=== PATIENT | male | born 1950 | race African-American/Black ===

== ENCOUNTER → 2017-12-31 | Outpatient (CLI) | payer MEDICARE, OTHER ==
[~2017-12-31] MED LIST: CARB1DRO12 OP; CLAR500T PO; FLUO15CR TP; FLUO20CA8 PO; FOLI1TAB16 PO; MOME45CR2 TP; OMEP40CA5 PO; PRAM15FO2 TP; TAMS0.4C2 PO; TRIA80OI TP; VALA1000 PO
--- NOTE | 2017-12-31 12:18 | EKG ---
[facility] [address] [place] [address] Test Date: 2017-12-31 Test Time: 12:26:55 Pat Name: CYN BRICEÑO Department: Room: Gender: M [employer] Software Engineer: : 1950 Requested By: KENY TAPIA Order Number: [id number] Reading MD: Fazal Swanson MD Measurements Intervals [place] Rate: 73 P: 43 WI: 158 QRS: 22 QRSD: 76 T: 26 QT: 358 QTc: 398 Interpretive Statements SINUS RHYTHM Electronically Signed On 12-31-2017 14:34:00 AERIAL INSTALLER by Fazal Swanson MD
[2017-12-31 12:33] LABS: ALBUMIN 3.4 g/dL (3.4-5.0); CREATININE 1.1 mg/dL (0.7-1.3); POTASSIUM 4.2 mmol/L (3.5-5.1)
[2017-12-31 12:36] LABS: PROTHROMBIN TIME PATIENT 12.6 SEC (11.7-14.0)
[2017-12-31 12:44] LABS: BASO % 1 % (0-3); EOS # 0.1 x10^3/uL (0.0-0.7); EOS % 3 % (0-3); HEMATOCRIT 36.5 % (39.0-53.0); HEMOGLOBIN 12.2 g/dL (13.0-17.5); LYMPH # 1.6 x10^3/uL (1.0-4.8); LYMPH % 38 % (24-48); MEAN CORPUSCULAR HEMOGLOBIN 31 pg (25-35); MEAN CORPUSCULAR HGB CONC 33 g/dL (31-37); MEAN CORPUSCULAR VOLUME 92 fL (79-100); MONO # 0.4 x10^3/uL (0.0-1.1); MONO % 10 % (0-9); NEUT % 48 % (31-73); PLATELET COUNT 211 x10^3/uL (140-400); RED BLOOD COUNT 3.97 x10^6/uL (4.30-5.70); RED CELL DISTRIBUTION WIDTH 14.2 % (11.5-14.5); WHITE BLOOD COUNT 4.1 x10^3/uL (4.0-11.0)
[2017-12-31 13:39] LABS: BILIRUBIN,URINE NEGATIVE (NEG); CLARITY,URINE CLEAR; COLOR,URINE YELLOW; NITRITE,URINE NEGATIVE (NEG); PH,URINE 6.5; PROTEIN,URINE NEGATIVE (NEG-TRACE); UROBILINOGEN,URINE 0.2 mg/dL (0.2 mg/dL)
[2017-12-31 14:16] LABS: BACTERIA,URINE 0 /HPF (0-FEW); RBC,URINE 0 /HPF (0-2); SQUAMOUS EPITHELIAL CELL,UR OCC /LPF; WBC,URINE 0 /HPF (0-4)
--- NOTE | 2017-12-31 15:17 | RAD ---
AP and Lateral Views of the Chest 12/31/2017 11:07 AM Indication: PRE OP FOR TOTAL HIP REPLACEMENT ON 01/14/18 Comparison: None available Findings: There is no focal consolidation or infiltrate identified. The cardiomediastinal silhouette is within normal limits. There is no evidence of pneumothorax or pleural effusion. Patient is right shoulder is noted to be elevated. This may be positional. Impression: No evidence of acute cardiopulmonary process. Electronically signed by: Micheal Coto MD (12/31/2017 3:14 PM) [facility]
== END | disposition home or self-care (01) ==
LOC: SURGPAT 10:56
PROVIDERS: ATTEND Orthopaedic Surgery Sports Medicine
DX: Z01.818 Encounter for other preprocedural examination (principal); M16.11 Unilateral primary osteoarthritis, right hip
CPT/HCPCS: 36415; 71046; 80048; 81001; 82040; 85025; 85610; 85651; 85730; 87641; 93005

== ENCOUNTER → 2018-03-19 | Outpatient (CLI) | payer MEDICARE, OTHER ==
[2018-03-19 16:51] LABS: BASO # 0.1 x10^3/uL (0.0-0.2); BASO % 1 % (0-3); EOS # 0.1 x10^3/uL (0.0-0.7); EOS % 3 % (0-3); HEMATOCRIT 37.8 % (39.0-53.0); HEMOGLOBIN 12.4 g/dL (13.0-17.5); LYMPH # 1.9 x10^3/uL (1.0-4.8); LYMPH % 43 % (24-48); MEAN CORPUSCULAR HEMOGLOBIN 31 pg (25-35); MEAN CORPUSCULAR HGB CONC 33 g/dL (31-37); MEAN CORPUSCULAR VOLUME 93 fL (79-100); MONO # 0.6 x10^3/uL (0.0-1.1); MONO % 13 % (0-9); NEUT # 1.7 x10^3uL (1.8-7.7); NEUT % 40 % (31-73); PLATELET COUNT 200 x10^3/uL (140-400); RED BLOOD COUNT 4.07 x10^6/uL (4.30-5.70); RED CELL DISTRIBUTION WIDTH 14.1 % (11.5-14.5); WHITE BLOOD COUNT 4.4 x10^3/uL (4.0-11.0)
[2018-03-19 16:54] LABS: BILIRUBIN,URINE NEGATIVE (NEG); CLARITY,URINE CLEAR; COLOR,URINE YELLOW; NITRITE,URINE NEGATIVE (NEG); PROTEIN,URINE NEGATIVE (NEG-TRACE)
[2018-03-19 16:59] LABS: ALBUMIN 3.9 g/dL (3.4-5.0); CALCIUM 8.9 mg/dL (8.5-10.1); CREATININE 1.1 mg/dL (0.7-1.3); POTASSIUM 4.2 mmol/L (3.5-5.1)
[2018-03-19 17:11] LABS: BACTERIA,URINE 0 /HPF (0-FEW); HYALINE CASTS, URINE OCCASIONAL /HPF; RBC,URINE OCC /HPF (0-2); SQUAMOUS EPITHELIAL CELL,UR FEW /LPF; WBC,URINE OCC /HPF (0-4)
== END | disposition home or self-care (01) ==
LOC: SURGPAT 14:35
PROVIDERS: ATTEND Orthopaedic Surgery
DX: Z01.818 Encounter for other preprocedural examination (principal); M16.11 Unilateral primary osteoarthritis, right hip
CPT/HCPCS: 36415; 80048; 81001; 82040; 85025; 87641

== ENCOUNTER → 2018-03-25 | Day surgery (SDC) | payer MEDICARE, OTHER ==
[2018-03-19 15:33] VITALS: BP 123/72
[~2018-03-25] VITALS: Ht 170.2 cm; Wt 83.5 kg
[~2018-03-25] MED LIST changes: +FERR325T14 PO; +HYDROcodone/APAP 7.5/325MG 1 TAB TABLET PO PRN; +MELOXICAM 7.5 MG TABLET PO PRN; +OXYC1TAB15 PO; +SENN-161 PO; +TRANEXAMIC ACID 1,000 MG in IV NS 50ML -- 1ST BAG INJ ONE; +TRANEXAMIC ACID 1,000 MG in IV NS 50ML -- 2ND BAG INJ ONE; +TV=100ml MORPHINE 5 MG, KETOROLAC 30 MG, ROPIVacaine 0.5% PF 60 ML, EPINEPH... INT ART ONE; +WARF-31 PO
== END | disposition home or self-care (01) ==
LOC: OPSVCIP 05:49 → UNDOADMIN 05:49 → OPSVCOP 06:00 → EDSTATUS 08:30
PROVIDERS: ATTEND Orthopaedic Surgery Sports Medicine
DX: M19.90 Unspecified osteoarthritis, unspecified site (principal); Z53.8 Procedure and treatment not carried out for other reasons

== ENCOUNTER 2018-04-15 06:06 | Inpatient (IN) | payer MEDICARE, OTHER ==
[~2018-04-15] VITALS: Ht 171.4 cm; Wt 83.5 kg
[2018-04-15] VITALS (8 sets, daily range): BP systolic 92–126; BP diastolic 64–77
[~2018-04-15 06:06] MED LIST changes: -FERR325T14 PO; -HYDROcodone/APAP 7.5/325MG 1 TAB TABLET PO PRN; -MELOXICAM 7.5 MG TABLET PO PRN; +MORPHINE SULFATE 5 MG, KETOROLAC 30MG VIAL 30 MG, ROPIVacaine 0.5% PF 60 ML, EPINEPHrin... INT ART ONE; -OXYC1TAB15 PO; -SENN-161 PO; -TRANEXAMIC ACID 1,000 MG in IV NS 50ML -- 1ST BAG INJ ONE; -TRANEXAMIC ACID 1,000 MG in IV NS 50ML -- 2ND BAG INJ ONE; -TV=100ml MORPHINE 5 MG, KETOROLAC 30 MG, ROPIVacaine 0.5% PF 60 ML, EPINEPH... INT ART ONE; -WARF-31 PO
[2018-04-15] MEDS ORDERED: ONDANSETRON PF 4 MG/2 ML VIAL. ONE (06:55)
[2018-04-15] MEDS ORDERED: DEXAMETHASONE SOD PHOS 20 MG/5 ML VIAL. ONE (06:55)
[2018-04-15] MEDS ORDERED: PROPOFOL 20 ML IV ONE ×2 (06:55→09:40)
[2018-04-15] MEDS ORDERED: FAMOTIDINE 20 MG/2 ML VIAL ONE (06:55)
[2018-04-15] MEDS ORDERED: LIDOCAINE 2% PF 5 ML VIAL. ONE (06:55)
[2018-04-15] MEDS ORDERED: HYDROmorphone 2 MG/ML VIAL IV PRN (07:00)
[2018-04-15] MEDS ORDERED: LIDOCAINE 1% PF 2 ML VIAL. ID PRN (07:00)
[2018-04-15] MEDS ORDERED: IV RINGERS,LACTATED 1000ML 1,000 ML IV SCH (07:00)
[2018-04-15] MEDS ORDERED: ONDANSETRON PF 4 MG/2 ML VIAL. IV PRN (07:00)
[2018-04-15] MEDS ORDERED: MORPHINE SULFATE 2 MG/ML VIAL. IV PRN (07:00)
[2018-04-15] MEDS ORDERED: PROCHLORPERAZINE 10 MG/2 ML VIAL. IV PRN (07:00)
[2018-04-15] MEDS ORDERED: fentaNYL PF VIAL 100 MCG/2 ML VIAL IV PRN ×3 (07:00→07:45)
[2018-04-15] MEDS ORDERED: ROCURONIUM 50 MG/5 ML VIAL. ONE (07:02)
[2018-04-15] MEDS ORDERED: fentaNYL PF VIAL 100 MCG/2 ML VIAL ONE ×2 (07:02→08:24)
[2018-04-15] MEDS ORDERED: MIDAZOLAM HCL/PF 2 MG/2 ML VIAL. ONE (07:03)
[2018-04-15] MEDS ORDERED: MELOXICAM 7.5 MG TABLET PO ONE (07:15)
[2018-04-15] MEDS ORDERED: HYDROcodone/APAP 7.5/325MG 1 TAB TABLET PO ONE (07:30)
[2018-04-15] MEDS ORDERED: IV NORMAL SALINE 1000ML BAG 1,000 ML IV SCH (07:33)
[2018-04-15] MEDS ORDERED: ZOLPIDEM 5 MG TABLET. PO PRN (07:45)
[2018-04-15] MEDS ORDERED: PROCHLORPERAZINE 5 MG TABLET. PO PRN (07:45)
[2018-04-15] MEDS ORDERED: diphenhydrAMINE 50 MG/ML VIAL IV PRN (07:45)
[2018-04-15] MEDS ORDERED: METOCLOPRAMIDE HCL 10 MG/2 ML VIAL. IV PRN (07:45)
[2018-04-15] MEDS ORDERED: DEXTROSE 50% 25 GM / 50ML DISP.SYRIN. IV PRN (07:45)
[2018-04-15] MEDS ORDERED: CALCIUM CARBONATE 500 MG TAB.CHEW PO PRN (07:45)
[2018-04-15] MEDS ORDERED: FLUOCINONIDE TP PRN (07:45)
[2018-04-15] MEDS ORDERED: 0.9 % SODIUM CHLORIDE 10 ML DISP.SYRIN. IV PRN (07:45)
[2018-04-15] MEDS ORDERED: MORPHINE SULFATE 4 MG/ML VIAL. IV PRN (07:45)
[2018-04-15 07:47] LABS: PROTHROMBIN TIME PATIENT 12.3 SEC (11.7-14.0)
[2018-04-15] MEDS: FERROUS SULFATE 325 MG TABLET. PO SCH ×2 (08:00→15:55)
[2018-04-15] MEDS ORDERED: TRANEXAMIC ACID 1,000 MG in IV NORMAL SALINE 50ML 50 ML INJ ONE ×2 (08:00→10:00)
[2018-04-15] MEDS ORDERED: NEOSTIGMINE 10 MG/10 ML VIAL. ONE (08:16)
[2018-04-15] MEDS ORDERED: GLYCOPYRROLATE 1 MG/5 ML VIAL. ONE (08:16)
[2018-04-15] MEDS ORDERED: MOMETASONE FUROATE TP SCH (09:00)
[2018-04-15] MEDS ORDERED: PRAMOXINE 1% RECTAL FOAM 15GM CAN. TP SCH (09:00)
[2018-04-15] MEDS: FOLIC ACID 1 MG TABLET. PO SCH (09:00)
[2018-04-15] MEDS: MULTIVITAMIN with MINERAL TABLET. PO SCH (09:00)
[2018-04-15] MEDS ORDERED: TRIAMCINOLONE ACETONIDE 0.1% TOPICAL CREAM 15GM TUBE. TP SCH (09:00)
[2018-04-15] MEDS: SENNOSIDES/DOCUSATE 8.6/50MG TABLET. PO SCH (09:00)
[2018-04-15] MEDS ORDERED: POLYVINYL ALCOHOL 1.4% OPHTH SOLUTION 15ML BOTTLE. OU SCH (09:00)
[2018-04-15] MEDS ORDERED: SEVOFLURANE > 120 MINUTES. IH ONE (09:19)
--- NOTE | 2018-04-15 09:47 | PDOC4 ---
Operative Note Operative Note Date of procedure: 04/15/2018 Surgeon: David Tapia Asst.: Chava Dean, advanced practice registered nurse who was necessary to assist with manipulating the leg and holding retractors as well as wound closure for this procedure Preoperative diagnosis: Advanced right hip primary degenerative joint disease Postoperative diagnosis: Same Procedure performed: right total hip arthroplasty Anesthesia: Gen. Findings: Advanced primary degenerative joint disease of right hip. Blood loss: 200 mL Complications: None Components inserted Joaquin and nephew 54 mm R3 shell with a 20 posteriorly directed liner, size 5 standard offset anthology stem with a 36+0 Oxinium head Reason for procedure: Patient is a very pleasant individual with severe progressive pain interfering with her activities of daily living and attributable to the above preoperative diagnosis. Clinical and radiographic examination were consistent with the above preoperative diagnosis and after discussion of the risks, benefits, and alternatives, taking into account his failure of conservative therapies, the patient elected to proceed with surgery. Description of procedure: Patient was greeted in the preoperative area by myself for the correct extremity was verified and marked. He was taken back to the operative suite and antibiotics were started as they were brought back. Once in the operative room, patient was transferred gently supine to the operating table and secured to the bed with all pressure points padded. Axillary roll was used. The down leg was padded at the fibular head and heel. Patient was secured the bed with our hip positioning devices. I then appreciated leg lengths in this position. After this, the operative extremity was prepped and draped in her usual sterile fashion including an Ioban Humbird. We then proceeded to conducted our standard preoperative timeout. I then palpated and marked surface anatomy and jose a line from my standard posterolateral skin incision. Skin was incised with a scalpel and subcutaneous tissue was dissected down the level of fascia with electrocautery. Bleeders were cauterized as a were encountered. Alejo elevator was used to sweep aside adherent subcutaneous tissue for later identification and repair of the fascia. Fascia was then incised in line with the skin incision and the gluteus caroline was split bluntly in line with its fibers. There was abundant fibrotic tissue present and I excised some of this for exposure. After this, a lap was used to push bursal tissue posteriorly to identify the piriformis and quadratus, these were taken down, the piriformis was tagged for later repair. Our self-retaining retractor was in place. At this point, identified the hip capsule incised in a T -type incision, taking ends for later repair. The hip was dislocated, overall it was quite tight and therefore I elected to release 1 cm of the gluteus caroline tendinous insertion. I then palpated and marked with electrocautery areas at the greater and lesser trochanters and center of the femoral head and I made measurements for length and offset. I then jose a line on the neck about 1 cm proximal lesser trochanter and made my neck cut through this. The bony remnant was delivered from the operative field. We placed her acetabular retractors and inspected the acetabulum. I excised the soft tissues from the floor the acetabulum as well as the labrum. Osteophytes were taken down posteriorly. After this, we began reaming and reamed down until we encountered a punctate bleeding bony bed. The operative field and then thoroughly irrigated out. The cup was then impacted referencing la posta anatomy and the crossbar attachment. I had identified the transverse acetabular ligament. After this, I palpated for the posterior column and greater sciatic notch and referenced this to place a screw into the posterior column. The operative field was irrigated again and my polyethylene liner was then impacted in position and confirmed that it was fully seated on circumferential visualization. We then removed our acetabular retractors and used our proximal femoral elevator and repositioned the leg. I used the hardeep cutting osteotome followed by canal finding reamer followed by lateralizing reamer. We then began broaching and broached to the above size and trialed different head and necks, using our measurements as a guide as well. The above sizes gave the best range of motion and stability. After this, the trial components were removed and the canal was thoroughly irrigated. I then impacted my femoral STEM and position. We then re-trialed the head sizes and selected the above size. The hip was redislocated and the Casarez taper region was washed and dried. The femoral head was then gently impacted in position and the acetabulum was inspected and irrigated to make sure was free of debris. After this, the hip was reduced. Excellent range of motion and stability were achieved. I was happy with the leg lengths. We then closed capsule with simple interrupted #2 Ethibond. Piriformis was reapproximated through drill holes. I then injected my periarticular mixture into the veronica- incisional soft tissues below. Fascia was closed was running #2 Quill suture. Inverted interrupted 2-0 Vicryl in a multilayered fashion was used for subcutaneous tissue and running 4-0 Monocryl for skin. Prior to wound closure, all counts correct 2. No complications. At the conclusion, the hip region was cleansed and dried and our incisional wound vacuum was applied. Patient tolerated surgery well. At the conclusion, they were laid supine and transferred gently supine to the hospital bed and taken to PACU in a stable and extubated condition. Postoperative plan is to admit the patient to the joint center for DVT and antibiotic prophylaxis as well as to begin the rehabilitation and receive likely IV pain medicine. DAVID TAPIA II, MD Apr 15, 2018 09:47
--- NOTE | 2018-04-15 10:40 | RAD ---
EXAM: Pelvis, single view. HISTORY: Arthroplasty. COMPARISON: None. FINDINGS: A frontal view of the pelvis is obtained. There is a right hip arthroplasty in expected position. There is surrounding soft tissue gas due to recent surgery. There is mild left hip joint space narrowing with subchondral sclerosis and minimal marginal spurring. There is degenerative change at the lumbosacral junction. IMPRESSION: Right hip arthroplasty in expected position. Electronically signed by: Loren Franco MD (04/15/2018 10:37 AM) [facility]
--- NOTE | 2018-04-15 11:00 | NUR ---
Arrived to unit by bed from PACU. Awakens easily with no c/o at present time. Right hip dressing is intact with HINA dressing. Pedal pulses + bilaterally, warm to touch and able to wiggle toes easily. JESUSITA, SCD on left leg and LATOYA on right foot. IVF's intact and infusing. O2 at 2l per n/c. Oriented to room and controls. Side rails up x's 2 with call light in reach. Family at bedside. VS stable. Cont. monitor.
[2018-04-15] MEDS: ONDANSETRON ODT 4 MG TAB.RAPDIS. PO SCH ×2 (12:00→15:57)
[2018-04-15] MEDS: ONDANSETRON PF 4 MG/2 ML VIAL. IV SCH ×2 (12:00→15:57)
[2018-04-15] MEDS: TAMSULOSIN 0.4 MG CAP.ER.24H. PO SCH (12:19)
[2018-04-15] MEDS: FLUoxetine HCL 20 MG CAPSULE PO SCH (12:19)
[2018-04-15] MEDS: valACYclovir 500 MG TABLET. PO SCH ×2 (12:19→20:45)
[2018-04-15] MEDS: oxyCODONE IR 5 MG TABLET PO PRN ×2 (12:20→20:45)
[2018-04-15] MEDS: POLYVINYL ALCOHOL 1.4% OPHTH SOLUTION 15ML BOTTLE. OU SCH ×3 (13:00→20:45)
[2018-04-15] MEDS: PANTOPRAZOLE 40 MG TABLET.DR. PO SCH (15:55)
[2018-04-15] MEDS ORDERED: WARFARIN 7.5 MG TABLET. PO ONE (16:00)
[2018-04-15] MEDS: PRAMOXINE 1% RECTAL FOAM 15GM CAN. TP SCH (21:00)
[2018-04-16 02:57] VITALS: BP 94/61
[2018-04-16 04:38] LABS: HEMATOCRIT 31.5 % (39.0-53.0); HEMOGLOBIN 10.4 g/dL (13.0-17.5)
[2018-04-16 05:03] LABS: PROTHROMBIN TIME PATIENT 13.6 SEC (11.7-14.0)
[2018-04-16] MEDS: ONDANSETRON PF 4 MG/2 ML VIAL. IV SCH ×2 (05:31)
[2018-04-16] MEDS: ONDANSETRON ODT 4 MG TAB.RAPDIS. PO SCH ×2 (05:31)
--- NOTE | 2018-04-16 05:32 | NUR ---
Awake, reading in bed. medicated w/ Ani at HS. Slept well after that. Ambulated to toilet w/ minimal assist w/o difficulty.
[2018-04-16] MEDS ORDERED: MAGNESIUM HYDROXIDE 2,400 MG/30 ML ORAL.SUSP. PO PRN (06:00)
[2018-04-16 06:30] VITALS: BP 97/58
[2018-04-16] MEDS: POLYVINYL ALCOHOL 1.4% OPHTH SOLUTION 15ML BOTTLE. OU SCH ×4 (07:04→21:43)
[2018-04-16] MEDS: PRAMOXINE 1% RECTAL FOAM 15GM CAN. TP SCH ×2 (07:05→21:00)
[2018-04-16] MEDS: PANTOPRAZOLE 40 MG TABLET.DR. PO SCH ×2 (07:47→15:30)
[2018-04-16] MEDS: FERROUS SULFATE 325 MG TABLET. PO SCH ×2 (07:47→15:30)
[2018-04-16] MEDS: FLUoxetine HCL 20 MG CAPSULE PO SCH (07:47)
[2018-04-16] MEDS: MULTIVITAMIN with MINERAL TABLET. PO SCH (07:47)
[2018-04-16] MEDS: FOLIC ACID 1 MG TABLET. PO SCH (07:48)
[2018-04-16] MEDS: TAMSULOSIN 0.4 MG CAP.ER.24H. PO SCH (07:48)
[2018-04-16] MEDS: ACETAMINOPHEN 500 MG TABLET PO SCH ×3 (07:48→21:47)
[2018-04-16] MEDS: valACYclovir 500 MG TABLET. PO SCH ×2 (07:48→21:42)
[2018-04-16] MEDS: SENNOSIDES/DOCUSATE 8.6/50MG TABLET. PO SCH (07:48)
[2018-04-16] MEDS: oxyCODONE IR 5 MG TABLET PO PRN ×3 (07:49→21:42)
--- NOTE | 2018-04-16 08:35 | PDOC ---
ORTHO PROGRESS NOTES Subjective His pain is tolerable. No abdominal complaints. Vitals Vital Signs Date Time Temp Pulse Resp B/P (MAP) Pulse Ox O2 Delivery O2 Flow Rate FiO2 04/16/18 07:49 Room Air 04/16/18 06:30 98.8 81 20 97/58 (71) 98 98.8 04/15/18 11:30 2.0 Labs Laboratory Tests Test 04/15/18 06:40 04/16/18 03:55 Erythrocyte Sedimentation Rate 10 (0-15) Prothrombin Time 12.3 SEC (11.7-14.0) 13.6 SEC (11.7-14.0) Prothromb Time International Ratio 0.9 (0.8-1.1) 1.1 (0.8-1.1) Activated Partial Thromboplast Time 28 SEC (24-38) Hemoglobin 10.4 g/dL (13.0-17.5) Hematocrit 31.5 % (39.0-53.0) Mean Corpuscular Hemoglobin Concent 33 g/dL (31-37) Laboratory Tests Test 04/16/18 03:55 Hemoglobin 10.4 g/dL (13.0-17.5) Hematocrit 31.5 % (39.0-53.0) Mean Corpuscular Hemoglobin Concent 33 g/dL (31-37) Prothrombin Time 13.6 SEC (11.7-14.0) Prothromb Time International Ratio 1.1 (0.8-1.1) Notes He is awake and alert. Normal motor and sensation are present in his right lower extremity. Dressing is intact Assessment and Plan Coumadin, PT and OT today. We will see how he does with progressing with his rehabilitation. KENY TAPIA II, MD Apr 16, 2018 08:35
[2018-04-16] MEDS ORDERED: TRIAMCINOLONE ACETONIDE 0.1% TOPICAL CREAM 15GM TUBE. TP SCH (09:00)
[2018-04-16] MEDS ORDERED: ONDANSETRON ODT 4 MG TAB.RAPDIS. PO PRN (12:00)
[2018-04-16] MEDS ORDERED: ONDANSETRON PF 4 MG/2 ML VIAL. IV PRN (12:00)
--- NOTE | 2018-04-16 15:45 | NUR ---
Pharmacy Warfarin Dosing Note S:Pharmacy consulted to assist with anticoagulation therapy started 04/14/18 with target INR: 1.6 - 2.5 O:CYN BRICEÑO is a 67 year old M with MANA LABS: Last INR: 1.1 Last HGB: 10.4 Last HCT: 31.5 Last PLT: - Last dose of 7.5 mg given on 04/15/18 at 1556 Vitamin K given: N Drug Interaction Changes: Same Interacting Drug Ongoing Drug Interactions: fluoxetine A:INR of 1.1 is below desired range. Target range for this patient is: 1.6 - 2.5 P: Warfarin dose: 5 mg Today at 1600 Bridge Therapy: None Next INR due tomorrow Pharmacy anticoagulation service will continue to follow. Rachel Campos RPH, 04/16/18 1726
[2018-04-16] MEDS ORDERED: WARFARIN 5 MG TABLET. PO ONE (16:00)
[2018-04-16] MEDS ORDERED: BISACODYL 10 MG SUPP.RECT. PR PRN (16:00)
[2018-04-16 17:56] VITALS: BP 93/62
[2018-04-17] MEDS: ACETAMINOPHEN 500 MG TABLET PO SCH ×4 (03:00→21:04)
[2018-04-17 06:02] VITALS: BP 110/72
--- NOTE | 2018-04-17 06:37 | NUR ---
Cloth tape removed from dressing. Quarter sized spot of old drainage present in medial aspect of dsg. Drank 1000ml of H20, BP 110/72.
[2018-04-17 06:51] LABS: HEMATOCRIT 30.4 % (39.0-53.0)
--- NOTE | 2018-04-17 07:09 | PDOC ---
ORTHO PROGRESS NOTES Subjective Patient sitting up in bed with no new complaints. Post-op Day: 2 Procedure R MANA Vitals Vital Signs Date Time Temp Pulse Resp B/P (MAP) Pulse Ox O2 Delivery O2 Flow Rate FiO2 04/17/18 06:02 99.4 92 20 110/72 (85) 96 Room Air 99.4 Labs Laboratory Tests Test 04/16/18 03:55 Hemoglobin 10.4 g/dL (13.0-17.5) Hematocrit 31.5 % (39.0-53.0) Mean Corpuscular Hemoglobin Concent 33 g/dL (31-37) Prothrombin Time 13.6 SEC (11.7-14.0) Prothromb Time International Ratio 1.1 (0.8-1.1) Assessment and Plan POD#2 R MANA doing well moving toes and feet on request motor and sensory intact distally.. dressing dry and intact PT today CARINE WRIGHT APRN Apr 17, 2018 07:09
[2018-04-17 07:31] LABS: PROTHROMBIN TIME PATIENT 14.9 SEC (11.7-14.0)
[2018-04-17] MEDS: PANTOPRAZOLE 40 MG TABLET.DR. PO SCH ×2 (07:35→16:10)
[2018-04-17] MEDS: valACYclovir 500 MG TABLET. PO SCH ×2 (08:52→21:04)
[2018-04-17] MEDS: MULTIVITAMIN with MINERAL TABLET. PO SCH (08:53)
[2018-04-17] MEDS: FLUoxetine HCL 20 MG CAPSULE PO SCH (08:53)
[2018-04-17] MEDS: FOLIC ACID 1 MG TABLET. PO SCH (08:53)
[2018-04-17] MEDS: FERROUS SULFATE 325 MG TABLET. PO SCH ×2 (08:53→17:32)
[2018-04-17] MEDS: SENNOSIDES/DOCUSATE 8.6/50MG TABLET. PO SCH (08:53)
[2018-04-17] MEDS: TAMSULOSIN 0.4 MG CAP.ER.24H. PO SCH (08:53)
[2018-04-17] MEDS: oxyCODONE IR 5 MG TABLET PO PRN ×3 (08:54→21:05)
[2018-04-17] MEDS: POLYVINYL ALCOHOL 1.4% OPHTH SOLUTION 15ML BOTTLE. OU SCH (08:57)
[2018-04-17] MEDS: PRAMOXINE 1% RECTAL FOAM 15GM CAN. TP SCH (09:00)
--- NOTE | 2018-04-17 10:15 | DISCH ---
DISCHARGE WITH HOME HEALTH DISCHARGE INFORMATION: Discharge Date: Apr 18, 2018 Final Diagnosis: R MANA Condition on Discharge: Stable HOME HEALTH: Face to Face: I certify this patient is under my care and that I, or a nurse practitioner or physician's culture media laboratory assistant working with me, had a face to face encounter that meets the physician face to face encounter requirements with this patient on []. Medical Complications: S/P Joint Replacement Senior Care For: Admin/Educate Injections Physical Therapy For: Evalulation/Treatment Occupational Therapy For: Evaluation/Treatment Pt Meets Homebound Status: Poor coordination w/ amb., Unsteady balance w/ amb, , Limited distance walking POST DISCHARGE ORDERS: Activity Instructions for Disc: Activity as tolerated Weight Bearing Status after Di: As tolerated Bathing Instructions: Shower-keep dressing dry DIET AFTER DISCHARGE: Regular Wound/Incision Care: Ice to area for comfort, Keep wound/cast CDI, Do not change dressing FOLLOW-UP: Follow up with: Eric in 2 wks Warfarin Follow UP: Pharmacy CERTIFICATION STATEMENT: Certification Statement: Certification Statement: Based on the above finding, I certify that this patient is confined to the home and needs intermittent prison care, physical therapy and/or speech therapy, or continues to need occupational therapy.~ This patient is under my care, and I have initiated the establishment of the plan of care.~ This patient will be followed by myself or a community physician who will periodically review the plan of care. Home Meds Reported Medications Mometasone Furoate (MOMETASONE FUROATE) 45 Gm Cream..g., 1 ALEXANDER TP BID for rash, #45 GM 1 Refill 12/31/17 Pramoxine Hcl (PRAMOXINE HCL) 15 Gm Foam, 15 GM TP BID for itching, EACH 12/31/17 Valacyclovir Hcl (VALACYCLOVIR) 1,000 Mg Tablet, 1 TAB PO BID for herpes, #30 TAB 3 Refills 12/31/17 Triamcinolone Acetonide (TRIAMCINOLONE ACETONIDE) 80 Gm Oint...g., 1 ALEXANDER TP DAILY for rash, #30 GM 1 Refill 12/31/17 Tamsulosin Hcl (TAMSULOSIN HCL) 0.4 Mg Cap.er.24h, 1 CAP PO DAILY for prostate, #30 CAP 5 Refills 12/31/17 Omeprazole (OMEPRAZOLE) 40 Mg Capsule.dr, 1 CAP PO BID for reflux, #30 CAP 3 Refills 12/31/17 Folic Acid (FOLIC ACID) 1 Mg Tablet, 0.4 MG PO DAILY for supplement, TAB 12/31/17 Fluoxetine Hcl (FLUOXETINE HCL) 20 Mg Capsule, 2 CAP PO DAILY for depression, # 90 CAP 1 Refill 12/31/17 Fluocinonide (FLUOCINONIDE) 15 Gm Cream..g., 1 ALEXANDER TP BID PRN for itching, #30 GM 1 Refill 12/31/17 Carboxymethylcellulose Sodium (LUBRICANT EYE DROPS) 1 Each Droperette, 1 EACH OP QID for dry eyes, DROP 12/31/17 KENY TAPIA II, MD Apr 17, 2018 10:15
--- NOTE | 2018-04-17 10:57 | NUR ---
Pharmacy Warfarin Dosing Note S:Pharmacy consulted to assist with anticoagulation therapy started 04/14/18 with target INR: 1.6 - 2.5 O:CYN BRICEÑO is a 67 year old M with MANA LABS: Last INR: 1.2 Last HGB: 10.4 Last HCT: 31.5 Last PLT: - Last dose of 5 mg given on 04/16/18 at 1556 Previous Regimen: Vitamin K given: N Drug Interaction Changes: Same Interacting Drug Ongoing Drug Interactions: fluoxetine A:INR of 1.2 is below desired range. Target range for this patient is: 1.6 - 2.5 P: Warfarin dose: 5 mg Today at 1600 Bridge Therapy: None Next INR due IN AM Pharmacy anticoagulation service will continue to follow. COURTNEY [facility], 04/17/18 0433
[2018-04-17] MEDS ORDERED: PRAMOXINE 1% RECTAL FOAM 15GM CAN. TP PRN (11:15)
[2018-04-17] MEDS ORDERED: POLYVINYL ALCOHOL 1.4% OPHTH SOLUTION 15ML BOTTLE. OU PRN (11:15)
--- NOTE | 2018-04-17 14:42 | NUR ---
Pharmacy Warfarin Dosing Note S:Pharmacy consulted to assist with anticoagulation therapy started 04/14/18 with target INR: 1.6 - 2.5 O:CYN BRICEÑO is a 67 year old M with MANA LABS: Last INR: 1.2 Last HGB: 10.4 Last HCT: 31.5 Last PLT: - Last dose of 5 mg given on 04/16/18 at 1556 Previous Regimen: Vitamin K given: N Drug Interaction Changes: Same Interacting Drug Ongoing Drug Interactions: fluoxetine A:INR of 1.2 is below desired range. Target range for this patient is: 1.6 - 2.5 P: Warfarin dose: 5 mg Today at 1600 Bridge Therapy: None Next INR due IN AM Pharmacy anticoagulation service will continue to follow. COURTNEY [facility], 04/17/18 4580
[2018-04-17] MEDS ORDERED: WARFARIN 5 MG TABLET. PO ONE (16:00)
--- NOTE | 2018-04-17 16:25 | NUR ---
Delmar did well today. pain has been better controlled with oral medications. plans to go home tomorrow. he was able to participate in both rehab sessions.
--- NOTE | 2018-04-17 17:07 | PATHOLOGY ---
[facility] Accession Number: [id number] . 01 Material submitted: . RIGHT FEMORAL HEAD . 02 Diagnosis: Femoral head, right total hip arthroplasty: - Degenerative arthritis. (M:[facility] 04/17/2018) [facility]/04/17/2018 . 02 Electronically signed: . Jose Wade MD, Pathologist NPI- [id number] . 01 Gross description: . The specimen is received in formalin, labeled "Delmar Gomez, right femoral head", is a femoral head measuring 4.5 x 4.0 x 4.0 cm with an attached femoral neck measuring 2.2 cm in length by 4.5 x 3.0 cm. The femoral neck margin shows smooth, schneider brown and trabeculated bone. Examination of the femoral head articular surface reveals an area of eburnation measuring 3.0 x 2.2 cm with remaining schneider-brown and irregular. Peripheral osteophytes are identified. The specimen is sectioned to reveal thinning of the articular cartilage corresponding to the eburnation with the underlying bone, yellow, trabeculated with a hemorrhagic foci. Salon Stylist tissue is submitted in A1 after decalcification. (Femoral neck margin is inked blue) ([facility]; 04/15/2018) [facility]S . 02 Pathologist provided ICD-10: M16.11 . 02 CPT . 735447, 575282 Specimen Comment: A courtesy copy of this report has been sent to Specimen Comment: [phone]. Specimen Comment: Report sent to Specimen Comment: A duplicate report has been generated due to demographic updates. Performed at: [address], [place], [place] [id number] MD Royal Serra MD Phone: [phone] Performed at: [address] [id number] MD Jose Wade MD Phone: [phone]
[2018-04-17 17:31] VITALS: BP 119/70
[2018-04-18] MEDS: ACETAMINOPHEN 500 MG TABLET PO SCH ×3 (03:00→15:10)
[2018-04-18 06:08] VITALS: BP 109/76
--- NOTE | 2018-04-18 06:34 | NUR ---
Lab here. Patient slept well in the bed. No pain meds needed. Anticipates dismissal today.
[2018-04-18] MEDS: PANTOPRAZOLE 40 MG TABLET.DR. PO SCH (07:13)
[2018-04-18] MEDS ORDERED: BISACODYL 10 MG SUPP.RECT. PR ONE (07:15)
[2018-04-18 07:39] LABS: HEMATOCRIT 31.9 % (39.0-53.0); HEMOGLOBIN 10.7 g/dL (13.0-17.5)
[2018-04-18 07:43] LABS: PROTHROMBIN TIME PATIENT 16.7 SEC (11.7-14.0)
[2018-04-18] MEDS: SENNOSIDES/DOCUSATE 8.6/50MG TABLET. PO SCH (08:15)
[2018-04-18] MEDS: FERROUS SULFATE 325 MG TABLET. PO SCH (08:15)
[2018-04-18] MEDS: MULTIVITAMIN with MINERAL TABLET. PO SCH (08:15)
[2018-04-18] MEDS: FLUoxetine HCL 20 MG CAPSULE PO SCH (08:15)
[2018-04-18] MEDS: TAMSULOSIN 0.4 MG CAP.ER.24H. PO SCH (08:15)
[2018-04-18] MEDS: valACYclovir 500 MG TABLET. PO SCH (08:16)
[2018-04-18] MEDS: FOLIC ACID 1 MG TABLET. PO SCH (08:16)
[2018-04-18] MEDS: oxyCODONE IR 5 MG TABLET PO PRN ×3 (08:21→15:10)
--- NOTE | 2018-04-18 09:14 | PDOC ---
ORTHO PROGRESS NOTES Subjective He has progressed well. His pain is tolerable. No abdominal complaints Vitals Vital Signs Date Time Temp Pulse Resp B/P (MAP) Pulse Ox O2 Delivery O2 Flow Rate FiO2 04/18/18 08:21 Room Air 04/18/18 06:08 98.8 90 20 109/76 (87) 98 98.8 Labs Laboratory Tests Test 04/17/18 05:27 04/18/18 06:28 Hemoglobin 10.0 g/dL (13.0-17.5) 10.7 g/dL (13.0-17.5) Hematocrit 30.4 % (39.0-53.0) 31.9 % (39.0-53.0) Mean Corpuscular Hemoglobin Concent 33 g/dL (31-37) 33 g/dL (31-37) Prothrombin Time 14.9 SEC (11.7-14.0) 16.7 SEC (11.7-14.0) Prothromb Time International Ratio 1.2 (0.8-1.1) 1.4 (0.8-1.1) Laboratory Tests Test 04/18/18 06:28 Hemoglobin 10.7 g/dL (13.0-17.5) Hematocrit 31.9 % (39.0-53.0) Mean Corpuscular Hemoglobin Concent 33 g/dL (31-37) Prothrombin Time 16.7 SEC (11.7-14.0) Prothromb Time International Ratio 1.4 (0.8-1.1) Notes He is awake and alert and sitting in a chair. Normal motor and sensation are present in his operative extremity. Dressing is intact Assessment and Plan He'll be discharged home with home health care. Given his recent surgery and limitations in mobility, I would anticipate he will need a walker. He'll follow up with me in 2 weeks KENY TAPIA II, MD Apr 18, 2018 09:14
--- NOTE | 2018-04-18 09:15 | PDOC3 ---
Discharge Summary Visit Information Date of Admission: Apr 15, 2018 Date of Discharge: Apr 18, 2018 Admitting Diagnosis: advanced right hip primary degenerative joint disease Brief Hospital Course Allergies Allergies Coded Allergies Type Severity Reaction Last Updated Verified No Known Drug Allergies 04/15/18 No Vital Signs Vital Signs Date Time Temp Pulse Resp B/P (MAP) Pulse Ox O2 Delivery O2 Flow Rate FiO2 04/18/18 08:21 Room Air 04/18/18 06:08 98.8 90 20 109/76 (87) 98 98.8 Lab Results Laboratory Tests Test 04/17/18 05:27 04/18/18 06:28 Hemoglobin 10.0 g/dL (13.0-17.5) 10.7 g/dL (13.0-17.5) Hematocrit 30.4 % (39.0-53.0) 31.9 % (39.0-53.0) Mean Corpuscular Hemoglobin Concent 33 g/dL (31-37) 33 g/dL (31-37) Prothrombin Time 14.9 SEC (11.7-14.0) 16.7 SEC (11.7-14.0) Prothromb Time International Ratio 1.2 (0.8-1.1) 1.4 (0.8-1.1) Laboratory Tests Test 04/18/18 06:28 Hemoglobin 10.7 g/dL (13.0-17.5) Hematocrit 31.9 % (39.0-53.0) Mean Corpuscular Hemoglobin Concent 33 g/dL (31-37) Prothrombin Time 16.7 SEC (11.7-14.0) Prothromb Time International Ratio 1.4 (0.8-1.1) Brief Hospital Course Mr. Gomez is a 67 old male who presented to my outpatient orthopedic surgery clinic with complaints of severe and progressive pain that failed conservative therapies including injections. We had a discussion of the risks, benefits, alternatives to total hip arthroplasty and he elected to proceed. He tolerated surgery well cover well from anesthesia in the PACU. He was then taken to the joint Center for care and observation. He did receive PT, OT, DVT and antibiotic prophylaxis. He recovered well from surgery and remained hemodynamically stable and afebrile throughout the hospitalization. Pain was controlled on oral pain medicine at the time of discharge. Good progress was made with therapy throughout the hospitalization, and activities of daily living were accomplished by the patient. The incision was clean dry and intact and the operative extremity had normal motor and sensation. Discharge Information Condition at Discharge: Stable Follow Up: Weeks Disposition/Orders: D/C to Home w/ HH Scheduled Carboxymethylcellulose Sodium (Lubricant Eye Drops) 1 Each Droperette, 1 EACH OP QID for dry eyes, (Reported) Entered as Reported by: IRA HERNÁNDEZ on 12/31/17 1131 Last Taken: Unknown Dose on 04/14/18 Last Action: Converted on 04/15/18736 by PANCHO TAPIA MD Fluoxetine Hcl (Fluoxetine Hcl) 20 Mg Capsule, 2 CAP PO DAILY for depression, # 90 Ref 1 (Reported) Entered as Reported by: IRA HERNÁNDEZ on 12/31/17 113 Last Taken: Unknown Dose on 04/14/18 Last Action: Continued on 04/15/18736 by PANCHO TAPIA MD Folic Acid (Folic Acid) 1 Mg Tablet, 0.4 MG PO DAILY for supplement, (Reported) Entered as Reported by: IRA HERNÁNDEZ on 12/31/17 113 Last Taken: Unknown Dose on 04/14/18 Last Action: Continued on 04/15/18736 by PANCHO TAPIA MD Mometasone Furoate (Mometasone Furoate) 45 Gm Cream..g., 1 ALEXANDER TP BID for rash, #45 Ref 1 (Reported) Entered as Reported by: IRA HERNÁNDEZ on 12/31/17 1146 Last Taken: Unknown Dose on 04/14/18 Last Action: Converted on 04/15/18736 by PANCHO TAPIA MD Omeprazole (Omeprazole) 40 Mg Capsule.dr, 1 CAP PO BID for reflux, #30 Ref 3 ( Reported) Entered as Reported by: IRA HERNÁNDEZ on 12/31/17 1137 Last Taken: Unknown Dose on 04/14/18 Last Action: Converted on 04/15/18736 by PANCHO TAPIA MD Pramoxine Hcl (Pramoxine Hcl) 15 Gm Foam, 15 GM TP BID for itching, (Reported) Entered as Reported by: IRA HERNÁNDEZ on 12/31/17 1145 Last Taken: Unknown Dose on 04/14/18 Last Action: Converted on 04/15/18736 by PANCHO TAPIA MD Tamsulosin Hcl (Tamsulosin Hcl) 0.4 Mg Cap.er.24h, 1 CAP PO DAILY for prostate, #30 Ref 5 (Reported) Entered as Reported by: IRA HERNÁNDEZ on 12/31/17 1138 Last Taken: Unknown Dose on 04/14/18 Last Action: Continued on 04/15/18736 by PANCHO TAPIA MD Triamcinolone Acetonide (Triamcinolone Acetonide) 80 Gm Oint...g., 1 ALEXANDER TP DAILY for rash, #30 Ref 1 (Reported) Entered as Reported by: IRA HERNÁNDEZ on 12/31/17 1141 Last Taken: Unknown Dose on 04/14/18 Last Action: Converted on 04/15/18736 by PANCHO TAPIA MD Valacyclovir Hcl (Valacyclovir) 1,000 Mg Tablet, 1 TAB PO BID for herpes, #30 Ref 3 (Reported) Entered as Reported by: IRA HERNÁNDEZ on 12/31/17 1142 Last Taken: Unknown Dose on 04/14/18 Last Action: Converted on 04/15/18736 by PANCHO TAPIA MD Scheduled PRN Fluocinonide (Fluocinonide) 15 Gm Cream..g., 1 ALEXANDER TP BID PRN for itching, #30 Ref 1 (Reported) Entered as Reported by: IRA HERNÁNDEZ on 12/31/17 1133 Last Taken: Unknown Dose on 04/14/18 Last Action: Converted on 04/15/18736 by PANCHO TAPIA MD Patient Instructions Patient Instructions He will be discharged home. Home health care has been set up. We will get him started on outpatient therapy as soon as we are able. The patient will be on Coumadin for a month. He can weight-bear as tolerated. Worrisome signs and symptoms that should prompt a phone call to my office were discussed. We'll see him back in 2 weeks, sooner should a problem arise. KENY TAPIA II, MD Apr 18, 2018 09:15
[2018-04-18] MEDS ORDERED: SENN-161 PO (11:34)
[2018-04-18] MEDS ORDERED: FERR325T14 PO (11:34)
[2018-04-18] MEDS ORDERED: WARF-31 PO (11:35)
[2018-04-18] MEDS ORDERED: OXYC1TAB15 PO (11:36)
[2018-04-18] MEDS ORDERED: WARFARIN 5 MG TABLET. PO ONE (13:00)
[2018-04-18 13:15] VITALS: BP 118/74
--- NOTE | 2018-04-18 13:54 | NUR ---
Pharmacy Warfarin Dosing Note S: Pharmacy consulted to assist with anticoagulation therapy started 04/14/18 O: CYN BRICEÑO is a 67 year old M with [facility]: Last INR: 1.4 Last HGB: 10.7 Last HCT: 31.9 Last PLT: - Last dose of 5 mg given on 04/17/18 at 1556 Vitamin K given: N Ongoing Drug Interactions: fluoxetine A:INR of 1.4 is below desired range. Target range for this patient is: 1.6 - 2.5 P: Warfarin dose: 5 mg Today at 1600 Bridge Therapy: None Next INR due April 22 Outpatient pharmacy anticoagulation service will continue to follow. ANGELITO NAYLOR [facility], 04/18/18 [id number]
--- NOTE | 2018-04-18 15:43 | NUR ---
reviewed written instructions with Delmar, his and friend. reviewed restrictions to activities of daily living such as bathing, driving incisional care and other activities of daily living. reviewed follow up and medications especially Coumadin and Percocet along with side effects and lab draw. given number for the home health and when to expect them. script for Percocet given along with Coumadin pills. all questions answered. dismissed to home with [facility] and personal belongings and walker. Addendum: 04/18/18 at 1550 by ALAINA CARTER RN reviewed usage fo medigrip when to remove and replace and informed not to wear 04/09--verbalized understanding
== END 2018-04-18 15:52 | disposition home health service (06) | DRG 470 ==
LOC: OPSVCIP 06:06 → 4 SOUTHEST 11:00
PROVIDERS: ADMIT Orthopaedic Surgery Sports Medicine; ATTEND Orthopaedic Surgery Sports Medicine
PROC: 0SR906Z Replacement of Right Hip Joint with Oxidized Zirconium on Polyethylene Synthetic Substitute, Open Approach (ICD-10-PCS; principal; 2018-04-15 07:30)
DX: M16.11 Unilateral primary osteoarthritis, right hip (principal); N40.0 Benign prostatic hyperplasia without lower urinary tract symptoms; E78.5 Hyperlipidemia, unspecified; K21.9 Gastro-esophageal reflux disease without esophagitis; K58.9 Irritable bowel syndrome, unspecified; D70.8 Other neutropenia
CPT/HCPCS: 36415; 72170; 85014; 85018; 85610; 85651; 85730; 86850; 86900; 86901; 88304; 88311; A7015; C1713; J0171; J0696; J1100; J1885; J2001; J2250; J2270; J2405; J2704; J2710; J2795; J3010; J3490; J7030; J7120; 97116; 97150; 97530; 97535

== ENCOUNTER 2021-03-26 21:52 | Emergency (ER) | payer MEDICARE, OTHER ==
[~2021-03-26 21:52] MED LIST changes: +CLAR-7 PO; -CLAR500T PO; +FERR325T14 PO; +FLUO20CA22 PO; -FLUO20CA8 PO; -MOME45CR2 TP; +MOME45CR3 TP; -MORPHINE SULFATE 5 MG, KETOROLAC 30MG VIAL 30 MG, ROPIVacaine 0.5% PF 60 ML, EPINEPHrin... INT ART ONE; -OMEP40CA5 PO; +OMEP40CA7 PO; +OXYC1TAB15 PO; +SENN-161 PO; -VALA1000 PO; +VALA10008 PO; +WARF-31 PO
== END 2021-03-27 00:41 | disposition left against medical advice (07) ==
LOC: ER 03-27 00:11
DX: I10 Essential (primary) hypertension (principal); Z53.21 Procedure and treatment not carried out due to patient leaving prior to being seen by health care provider